=== PATIENT | male | born 1970 | race Caucasian/White ===

== ENCOUNTER → 2020-12-06 09:56 | Outpatient (CLI) | payer BC, SELFPAY ==
--- NOTE | ~2020-12-06 | US_ITS ---
EXAMINATION: US soft tissue upper back DATE: 12/06/2020 11:11 INDICATION: Mass at the mid left upper back TECHNIQUE: Multiple grayscale and Doppler ultrasound images of the region of concern at the left uppe r back just inferior to the scapula were obtained. COMPARISON: None FINDINGS: The mass of concern corresponds to a solid ovoid hypoechoic subcutaneous mass measuring 7.0 x 7.2 x 2 .4 cm with similar echogenicity and echotexture to the surrounding fat. No evident internal vascular flow on color Doppler. IMPRESSION: 1. 7.0 x 7.2 x 2.4 cm subcutaneous mass which while nonspecific has appearance consistent with end wh ich is statistically most likely to represent a lipoma. CT or MRI could be obtained for more definiti ve determination. Reviewed, dictated and finalized at location A. [facility] IMPRESSION: 1. 7.0 x 7.2 x 2.4 cm subcutaneous mass which while nonspecific has appearance consistent with end which is statistically most likely to represent a lipoma. C T or MRI could be obtained for more definitive determination.
== END ==
PROVIDERS: PCP Internal Medicine; Visit Provider Physician Assistant Medical
DX: R22.2 Localized swelling, mass and lump, trunk (principal)
CPT/HCPCS: 76604

== ENCOUNTER 2021-01-08 08:06 | Outpatient (CLI) | payer BC, SELFPAY ==
--- NOTE | 2021-01-08 08:10 | ECG_ITS ---
Measurements Intervals [place] Rate: 87 P: 65 RI: 168 QRS: 14 QRSD: 109 T: 33 QT: 330 QTc: 397 Interpretive Statements SINUS RHYTHM INCOMPLETE RIGHT BUNDLE BRANCH BLOCK BORDERLINE R WAVE PROGRESSION, ANTERIOR LEADS BORDERLINE ECG Electronically Signed On 01-08-2021 8:47:57 CDT by Steven Crouch D.O.
[2021-01-08 09:08] LABS: Anion Gap 10 mmol/L (8-16); Blood Urea Nitrogen 16 mg/dL (9-20); Calcium 8.6 mg/dL (8.4-10.2); Carbon Dioxide 24 mmol/L (22-30); Chloride 103 mmol/L (98-107); Estimated Glomerular Filt Rate > 60; Glucose 330 mg/dL (75-110); Potassium 4.1 mmol/L (3.4-5.0); Sodium 137 mmol/L (137-145)
== END 2021-01-08 08:07 | disposition home or self-care (01) ==
LOC: ANHSURGERY 08:09
PROVIDERS: Anesthesiology; PCP Internal Medicine; Visit Provider Surgery
DX: Z01.818 Encounter for other preprocedural examination (principal); I45.10 Unspecified right bundle-branch block; R94.31 Abnormal electrocardiogram [ECG] [EKG]
CPT/HCPCS: 36415; 80048; 93005

== ENCOUNTER 2022-03-26 08:00 | Outpatient (RCR) | payer BC, SELFPAY ==
[2022-02-04 09:20] VITALS: BMI 45.6
[2022-02-04 09:25] VITALS: BMI 45.6
[2022-02-25 10:34] VITALS: BMI 44.3
[2022-02-25 10:37] VITALS: BMI 44.3
[2022-03-26 08:45] VITALS: BMI 45.8
[2022-03-26 08:48] VITALS: BMI 45.8
== END 2022-04-22 23:59 | disposition home or self-care (01) ==
LOC: ANHDMC 08:00
PROVIDERS: PCP Internal Medicine; Visit Provider Nurse Practitioner
DX: E11.65 Type 2 diabetes mellitus with hyperglycemia (principal); Z71.89 Other specified counseling; Z71.3 Dietary counseling and surveillance
CPT/HCPCS: 97802; 97803; 99199; G0108